=== PATIENT | male | born 1950 | race Caucasian/White ===

== ENCOUNTER 2017-07-04 01:26 | Observation (INO) | payer OTHER ==
[~2017-07-04] VITALS: Ht 157.5 cm; Wt 80.4 kg
[~2017-07-04 01:26] MED LIST: ADVAIR 250/501 DISK; ALBUTEROL2.5 MG/0.5 IH; AMLODIPINE BESY10 MG PO; ATENOLOL25 MG PO; BENTYL10 MG PO; CITALOPRAM HBR40 MG PO; FENOFIBRATE48 MG PO; FLOVENT 11120 INHALA IH; HYZAAR 100-21 TABLET PO; LEXAPRO20 MG PO; OMEPRAZOLE40 M1 PO; PRAVACHOL10 MG PO; QUINAPRIL-HCTZ1 EAC1 PO; TOPAMAX50 MG PO; TRAZODONE HCL50 MG PO; ULTRAM50 MG PO; ZANTAC300 MG PO; ZOFRAN4 MG PO; ZYRTEC10 M3 PO
[2017-07-04 01:56] LABS: HEMATOCRIT 41.7 % (38.0-50.0); HEMOGLOBIN 14.7 G/DL (12.5-16.6); MCH 31.3 PG (29.0-34.0); MCHC 35.3 G/DL (30.0-36.0); MCV 88.7 FL (86-99); PLATELET COUNT 312 K/uL (156-360); RBC DIS.WIDTH-CV 12.2 % (11.8-14.6); RBC DIS.WIDTH-SD 39.9 % (39-53); WHITE BLOOD COUNT 8.5 K/uL (4.1-10.2)
[2017-07-04 02:04] LABS: CHLORIDE 101 mEq/L (99-109); SODIUM 139 mEq/L (136-147)
[2017-07-04 02:06] LABS: GLUCOSE 102 mg/dL (70-99)
[2017-07-04 02:10] LABS: CREATININE 1.1 mg/dL (0.6-1.3); GFR ESTIMATE (CALCULATED) > 59 mL/min/ (58.99-99999); UREA NITROGEN (BUN) 14 mg/dL (9-23)
[2017-07-04 02:16] LABS: TROP-I INTERPRETATION NEGATIVE; TROPONIN-I < 0.01 ng/mL (0.0-0.30)
[2017-07-04 05:48] LABS: ALBUMIN 4.4 g/dL (3.2-4.8)
[2017-07-04 05:51] LABS: TOTAL PROTEIN 6.9 g/dL (6.4-8.3)
[2017-07-04 05:53] LABS: TOTAL BILIRUBIN 0.5 mg/dL (0.0-1.0)
[2017-07-04 05:54] LABS: ALKALINE PHOSPHATASE 95 IU/L (3-129)
[2017-07-04 05:57] LABS: ALT (GPT) 113 IU/L (3-49); AST (GOT) 45 IU/L (2-34); DIRECT BILIRUBIN 0.2 mg/dL (0.0-0.3)
[2017-07-04 05:58] LABS: LIPASE 35 U/L (1.0-51.0)
[2017-07-04 06:19] LABS: APPEARANCE CLEAR ((CLEAR)); BILIRUBIN NEGATIVE; BLOOD NEGATIVE; COLOR YELLOW ((YELLOW)); GLUCOSE (STRIP) NEGATIVE; KETONES NEGATIVE; LEUKOCYTES NEGATIVE; NITRITE NEGATIVE; PROTEIN (STRIP) NEGATIVE; SPECIFIC GRAVITY 1.015 (1.000-1.030); UCUL ADDED? NO; UROBILINOGEN 0.2 MG/DL (0.2-1.0)
[2017-07-04] MEDS ORDERED: NORVASC2.5 MG PO (07:44)
[2017-07-04] MEDS ORDERED: COZAAR100 MG PO (07:45)
[2017-07-04] MEDS ORDERED: GLUCOPHAGE500 MG PO (07:47)
[2017-07-04] MEDS ORDERED: NEURONTIN300 MG PO (07:47)
[2017-07-04] MEDS ORDERED: DIABETA5 MG PO (07:47)
[2017-07-04] MEDS ORDERED: BRINTELLIX10 MG PO (07:47)
[2017-07-04] MEDS ORDERED: ADVIL200 MG PO (07:48)
[2017-07-04 08:05] LABS: D-DIMER ELISA < 150.00 ng/mLDDU (<230)
[2017-07-04 09:25] VITALS: BP 110/69
[2017-07-04 09:29] LABS: TROP-I INTERPRETATION NEGATIVE; TROPONIN-I < 0.01 ng/mL (0.0-0.30)
[2017-07-04 12:47] VITALS: BP 116/70
[2017-07-04 15:13] LABS: TROP-I INTERPRETATION NEGATIVE; TROPONIN-I < 0.01 ng/mL (0.0-0.30)
[2017-07-04 15:59] VITALS: BP 120/70
[2017-07-04 23:38] VITALS: BP 118/76
[2017-07-05 03:23] VITALS: BP 111/79
[2017-07-05] MEDS ORDERED: NITROSTAT0.4 MG SL (08:26)
[2017-07-05] MEDS ORDERED: ASPIR-LOW81 MG PO (08:26)
[2017-07-05 09:10] VITALS: BP 131/83
[2017-07-05 11:32] VITALS: BP 136/78
== END 2017-07-05 12:31 | disposition home or self-care (01) ==
LOC: EME 01:26 → EDOF 07:47 → ENRESERV 08:02 → EDOF 08:31 → 4SOUTH 09:07
PROVIDERS: Emergency Medicine; Hospitalist
DX: R07.9 Chest pain, unspecified (principal); I25.10 Atherosclerotic heart disease of native coronary artery without angina pectoris; I25.2 Old myocardial infarction; I10 Essential (primary) hypertension; E11.9 Type 2 diabetes mellitus without complications; E78.5 Hyperlipidemia, unspecified; J44.9 Chronic obstructive pulmonary disease, unspecified; E66.9 Obesity, unspecified; Z68.32 Body mass index [BMI] 32.0-32.9, adult; K21.9 Gastro-esophageal reflux disease without esophagitis; R51 Headache; M54.9 Dorsalgia, unspecified; Z88.0 Allergy status to penicillin; Z88.8 Allergy status to other drugs, medicaments and biological substances; Z79.82 Long term (current) use of aspirin
CPT/HCPCS: 71046; 80048; 80076; 81003; 82948; 83690; 83880; 84484; 85027; 85379; 93005; 99281; 99285; G0378; J1644; J1815

== ENCOUNTER 2017-07-14 14:32 | Emergency (ER) | payer OTHER ==
[~2017-07-14] VITALS: Ht 157.5 cm; Wt 82.5 kg
[~2017-07-14 14:32] MED LIST changes: +ADVIL200 MG PO; +ASPIR-LOW81 MG PO; +BRINTELLIX10 MG PO; +COZAAR100 MG PO; +DIABETA5 MG PO; +GLUCOPHAGE500 MG PO; +NEURONTIN300 MG PO; +NITROSTAT0.4 MG SL; +NORVASC2.5 MG PO
[2017-07-14 14:58] LABS: BASOPHIL (%) 0.9 % (0-1); BASOPHIL COUNT 0.1 K/uL (0-0.1); EOSINOPHIL (%) 1.4 % (0-5); EOSINOPHIL COUNT 0.2 K/uL (0-0.3); HEMATOCRIT 46.3 % (38.0-50.0); HEMOGLOBIN 16.1 G/DL (12.5-16.6); IMMATURE GRANULOCYTE (%) 0.4 % (0.0-0.7); LYMPHOCYTE (%) 38.4 % (15-42); MCHC 34.8 G/DL (30.0-36.0); MCV 89.2 FL (86-99); MONOCYTE COUNT 1.2 K/uL (0-0.8); NEUTROPHIL (%) 47.9 % (45-76); PLATELET COUNT 354 K/uL (156-360); RBC DIS.WIDTH-CV 12.4 % (11.8-14.6); RBC DIS.WIDTH-SD 40.7 % (39-53); RED BLOOD COUNT 5.19 M/uL (4.00-5.50); WHITE BLOOD COUNT 10.5 K/uL (4.1-10.2)
[2017-07-14 15:03] LABS: INTER. NORMALIZED RATIO 1.1
[2017-07-14 15:05] LABS: CHLORIDE 100 mEq/L (99-109)
[2017-07-14 15:06] LABS: POTASSIUM 4.5 mEq/L (3.7-5.4); PTT 34.6 SEC (25-37); SODIUM 139 mEq/L (136-147)
[2017-07-14 15:07] LABS: GLUCOSE 67 mg/dL (70-99)
[2017-07-14 15:11] LABS: CREATININE 0.9 mg/dL (0.6-1.3); GFR ESTIMATE (CALCULATED) > 59 mL/min/ (58.99-99999)
[2017-07-14 15:12] LABS: UREA NITROGEN (BUN) 13 mg/dL (9-23)
[2017-07-14 15:18] LABS: TROP-I INTERPRETATION NEGATIVE; TROPONIN-I < 0.01 ng/mL (0.0-0.30)
[2017-07-14 17:11] LABS: D-DIMER ELISA < 150.00 ng/mLDDU (<230)
[2017-07-14 18:52] LABS: TROP-I INTERPRETATION NEGATIVE; TROPONIN-I < 0.01 ng/mL (0.0-0.30)
[2017-07-14 19:25] VITALS: BP 109/83
[2017-07-23] MEDS ORDERED: METOPROLOL TART25 MG PO (10:37)
== END 2017-07-14 19:58 | disposition home or self-care (01) ==
LOC: EME 14:32
PROVIDERS: Emergency Medicine
DX: R07.9 Chest pain, unspecified (principal); R42 Dizziness and giddiness; E78.5 Hyperlipidemia, unspecified; I10 Essential (primary) hypertension; F32.9 Major depressive disorder, single episode, unspecified; F41.9 Anxiety disorder, unspecified; I25.2 Old myocardial infarction; J44.9 Chronic obstructive pulmonary disease, unspecified; K21.9 Gastro-esophageal reflux disease without esophagitis; Z88.0 Allergy status to penicillin
CPT/HCPCS: 71045; 80048; 84484; 85025; 85379; 85610; 85730; 93005; 99281; 99284

== ENCOUNTER 2017-07-24 09:27 | Day surgery (SDC) | payer OTHER ==
[~2017-07-24] VITALS: Ht 157.5 cm; Wt 79.0 kg
[~2017-07-24 09:27] MED LIST changes: +METOPROLOL TART25 MG PO
[2017-07-24] MEDS ORDERED: ASPIR 8181 M1 PO (10:27)
== END 2017-07-24 16:55 | disposition home or self-care (01) ==
LOC: CATH 09:27
PROVIDERS: Internal Medicine Cardiovascular Disease
DX: I25.119 Atherosclerotic heart disease of native coronary artery with unspecified angina pectoris (principal); J44.9 Chronic obstructive pulmonary disease, unspecified; I10 Essential (primary) hypertension; E78.5 Hyperlipidemia, unspecified; E11.9 Type 2 diabetes mellitus without complications; Z79.82 Long term (current) use of aspirin
CPT/HCPCS: 82948; 85347; 93005; C1769; C1887; J0153; J1644; J2250; J3010; J7040

== ENCOUNTER → 2017-07-26 | Outpatient (CLI) | payer OTHER ==
[~2017-07-26] MED LIST changes: +ASPIR 8181 M1 PO
[2017-07-26 18:00] LABS: GFR ESTIMATE (CALCULATED) > 59 mL/min/ (58.99-99999); UREA NITROGEN (BUN) 14 mg/dL (9-23)
== END | disposition home or self-care (01) ==
LOC: LAB 16:40
PROVIDERS: Internal Medicine Cardiovascular Disease
DX: Z98.890 Other specified postprocedural states (principal)
CPT/HCPCS: 82565; 84520